=== PATIENT | female | born 1950 | race African-American/Black ===

== ENCOUNTER 2024-06-12 07:43 | Emergency (ER) | payer OTHER ==
[2024-06-12] MEDS ORDERED: dexAMETHasone 10 MG/ML VIAL ONE (08:47)
[2024-06-12] MEDS ORDERED: FENTANYL CITR 100 MCG/2 ML ONE (08:49)
--- NOTE | 2024-06-12 08:52 | RAD REPORT ---
EXAMINATION: US LEFT LOWER EXTREMITY VENOUS DOPPLER CLINICAL INDICATION: PAIN TECHNIQUE: Complete bilateral duplex sonography of the LEFT lower extremity veins was performed. The examination included compression for vein patency, color Doppler imaging and flow augmentation in response to distal compression of the distal external iliac, common femoral, femoral, popliteal, tibi al, and great and small saphenous veins. COMPARISON: No prior exam. FINDINGS: Duplex sonography testing of the veins of the LEFT lower extremity was performed. Color flow imaging shows all veins to be compressible with [id number] color filling. Pulsatile and phasic flow is present within all lower extremity deep and superficial veins examined. IMPRESSION: There is no deep vein or superficial vein thrombosis.
--- NOTE | 2024-06-12 09:13 | RAD REPORT ---
EXAMINATION: XR LEFT HIP CLINICAL INDICATION: . PAIN TECHNIQUE: Multiple views of the left hip were obtained. COMPARISON: No prior exam. FINDINGS: No acute fracture or dislocation. Fjsq-tw-[id number] left hip osteoarthritis. No radiographi c evidence of AVN. IMPRESSION: Bwny-zs-xlquavfb left hip osteoarthritis noted.
--- NOTE | 2024-06-12 09:14 | RAD REPORT ---
EXAMINATION: XR PELVIS CLINICAL INDICATION: PAIN TECHNIQUE: AP Pelvis examination was obtained. COMPARISON: No prior exam. FINDINGS: No evidence of fracture or dislocation. Normal alignment. No radiographic evidence of AVN seen. Euss-nw-slfumljy bilateral hip osteoarthritis. IMPRESSION: No acute finding visualized. Ajjm-ic-vcfvbvux bilateral hip osteoarthritis.
[2024-06-12 09:35] LABS: Sqamous Epithelial <5 /HPF (None Seen); Urine Bacteria None Seen /HPF (<20); Urine Bilirubin NEGATIVE (Negative); Urine Blood Negative (Negative); Urine Clarity Turbid (Clear); Urine Color Light-Yellow (Yellow); Urine Culture Reflex Order NOT NEEDED; Urine Glucose NEGATIVE (Negative); Urine Ketones NEGATIVE (Negative); Urine Micro Reflex YN NO BILL MICROSCOPIC; Urine Mucus Slight /HPF (None Seen); Urine Nitrite NEGATIVE (Negative); Urine Protein NEGATIVE (Negative); Urine RBC None Seen /HPF (None Seen); Urine Urobilinogen Normal (Normal); Urine WBC <5 /HPF (<5); Urine Yeast (Budding) Trace /HPF (None Seen)
--- NOTE | 2024-06-12 10:51 | RAD REPORT ---
EXAMINATION: CT ABDOMEN AND PELVIS WITHOUT CONTRAST CLINICAL INDICATION: left hip pain TECHNIQUE: CT abdomen and pelvis was performed, without IV contrast, as per department protocol. Axia l, sagittal and coronal reconstructions were obtained. One or more of the following dose reduction techniques were used: Automated exposure control, adjustment of the mA and kV according to the patien t size, and iterative reconstruction. Unless otherwise specified, incidental findings do not require dedicated imaging follow-up. COMPARISON: No prior exam. FINDINGS: The lack of intravenous contrast limits the sensitivity of this exam for evaluation of solid visceral organs, vascular structures, and retroperitoneum. LOWER CHEST: The visualized lung bases are clear. LIVER:Normal in size and contour. No focal lesion. Cholecystectomy clips. SPLEEN: Normal size. No focal lesion. PANCREAS: No mass, ductal dilation, or pepe-pancreatic fluid. ADRENALS: Normal; no mass. KIDNEYS AND URETERS: Normal size and contour. No hydronephrosis. URINARY BLADDER: Normal contour. GASTROINTESTINAL TRACT: No evidence of bowel obstruction, significant free fluid, free air or abscess . Moderate rectosigmoid stool. APPENDIX: Normal appendix. LYMPH NODES: No lymphadenopathy. MUSCULOSKELETAL: Mild to moderate lower lumbar degenerative changes. ADDITIONAL FINDINGS: None. IMPRESSION: No acute or concerning abnormalities in the abdomen or pelvis, with evaluation limited by lack of IV contrast. Moderate lower lumbar degenerative changes are seen.
--- NOTE | 2024-06-12 11:15 | ER ---
Nurse's Notes [facility] Name: Dominga Teran Age: 73 yrs Sex: Female : 1950 Arrival Date: 06/12/2024 Time: 07:43 Bed 14 Private MD: Diagnosis: Pain in left hip Presentation: 06/12 07:53 Chief complaint: Patient states: left hip pain since Wednesday morning, no injury. iw Coronavirus screen: At this time, the client does not indicate any symptoms associated with coronavirus-19. Ebola Screen: No symptoms or risks identified at this time. Initial Sepsis Screen: Does the patient meet any 2 criteria? No. Patient's initial sepsis screen is negative. Does the patient have a suspected source of infection? No. Patient's initial sepsis screen is negative. Risk Assessment: Do you want to hurt yourself or someone else? Patient reports no desire to harm self or others. Onset of symptoms was June 10, 2024. 07:53 Method Of Arrival: Wheelchair iw 07:53 Acuity: ESTEFANI 3 iw Historical: - Allergies: 07:54 No Known Allergies; iw - PMHx: 07:54 Arthritis; Hypertensive disorder; Depressive disorder; Panic attack; Migraine; iw - PSHx: 07:54 hysterectomy; Cholecystectomy; jarett knee; iw - Immunization history:: Adult Immunizations up to date. - Infectious Disease History:: Denies. - Social history:: Smoking status: Patient denies any tobacco usage or history of. Screenin:35 [facility] ED Fall Risk Assessment (Adult) History of falling in the last 3 months, db including since admission No falls in past 3 months (0 pts) Confusion or Disorientation No (0 pts) Intoxicated or Sedated No (0 pts) Impaired Gait No (0 pts) Mobility Assist Device Used No (0 pt) Altered Elimination No (0 pt) Score/Fall Risk Level 0 - 2 = Low Risk Oriented to surroundings, Maintained a safe environment. Abuse screen: Denies threats or abuse. Denies injuries from another. Nutritional screening: No deficits noted. Tuberculosis screening: No symptoms or risk factors identified. Assessment: 08:35 Reassessment: Patient appears in no apparent distress at this time. Patient and/or db family updated on plan of care and expected duration. Pain level reassessed. Patient is alert, oriented x 3, equal unlabored respirations, skin warm/dry/pink. LEFT HIP PAIN. General: Appears in no apparent distress. comfortable, Behavior is calm, cooperative. Pain: Complains of pain in left leg. Neuro: Level of Consciousness is awake, alert, obeys commands, Oriented to person, place, time, situation. Musculoskeletal: Circulation, motion, and sensation intact. Capillary refill < 3 seconds, Range of motion: limited in left hip. 09:16 General: Appears in no apparent distress. Behavior is calm, cooperative. Pain: ph Complains of pain in left hip Pain radiates to left leg. Neuro: Level of Consciousness is awake, alert, obeys commands, Oriented to person, place, time, situation. Derm: Skin is pink, warm \T\ dry. Musculoskeletal: Circulation, motion, and sensation intact. Range of motion: intact in all extremities. 10:00 Reassessment: Patient appears in no apparent distress at this time. Patient and/or ph family updated on plan of care and expected duration. Pain level reassessed. Patient is alert, oriented x 3, equal unlabored respirations, skin warm/dry/pink. Vital Signs: 07:53 BP 138 / 90; Pulse 68; Resp 16; Temp 98.1; Pulse Ox 98% on R/A; Weight 81.65 kg; Height iw 5 ft. 2 in. ; Pain 10/10; 10:00 BP 127 / 87; Pulse 67; Resp 18; Pulse Ox 98% on R/A; ph 11:00 BP 129 / 86; Pulse 72; Resp 19; Temp 98; Pulse Ox 99% on R/A; ph 07:53 Body Mass Index 32.92 (81.65 kg, 157.48 cm) iw 07:53 Pain Scale: Adult iw ED Course: 07:48 Patient arrived in ED. mr 07:54 Triage completed. iw 07:55 Arm band placed on. iw 07:56 Thao Interiano, MOLLY is Primary Nurse. db 08:06 Shad Toledo PA is PHCP. cp 08:06 Sarmad Flores DO is Attending Physician. cp 08:40 Patient taken to ultrasound. via stretcher. db 08:42 US Extremity Venous Unilateral Ltd In Process Unspecified. EDMS 08:51 Ultrasound completed. Patient tolerated well. Note: after us, pt taken to xray. lc6 09:08 XRAY Pelvis In Process Unspecified. EDMS 09:08 XRAY Hip LEFT 2 view In Process Unspecified. EDMS 09:11 Chantel Franco, RN is Primary Nurse. ph 09:18 Report given to MOLLY EPPS. db 09:46 Patient has correct armband on for positive identification. ph 09:46 Inserted saline lock: 24 gauge in left hand, using aseptic technique. Flushed with 10 ph mL NS. Missed attempt(s): 24 gauge in right wrist. Bleeding controlled, band aid applied, catheter tip intact. 10:24 CT Abd/Pelvis - Without Contrast In Process Unspecified. EDMS 11:51 Assist provider with bone marrow aspiration. IV discontinued, intact, bleeding ph controlled, No redness/swelling at site. Pressure dressing applied. Administered Medications: 09:45 Drug: Dexamethasone IVP 10 mg IVP once; (not to exceed 40 mg) Route: IVP; Site: left ph hand; 10:00 Follow up: Response: No adverse reaction ph 09:46 Drug: fentaNYL (PF) IVP 25 mcg IVP once Route: IVP; Site: left hand; ph 10:15 Follow up: Response: No adverse reaction ph 11:51 Drug: Ketorolac IVP 15 mg IVP once Route: IVP; Site: left hand; ph 12:00 Follow up: Response: No adverse reaction ph Medication: 11:51 VIS not applicable for this client. ph Outcome: 11:14 Discharge ordered by MD. cp 11:51 Discharged to home ambulatory, ph 11:51 Condition: good 11:51 Discharge instructions given to patient, Instructed on discharge instructions, follow up and referral plans. medication usage, Demonstrated understanding of instructions, follow-up care, medications, Prescriptions given X 2, 11:52 Patient left the ED. ph Signatures: Dispatcher [employer] EDLA Addie Viera, Reg Reg mr Alyssa Pleitez RN RN Chantel Franco, MOLLY RN ph Shad Toledo PA PA cp Thao Interiano RN RN Nickie Fernandez lc6
--- NOTE | 2024-06-12 11:15 | EDPHYS ---
Physician Documentation [facility] Name: Dominga Teran Age: 73 yrs Sex: Female : 1950 Arrival Date: 06/12/2024 Time: 07:43 Bed 14 Private MD: ED Physician Sarmad Flores HPI: 06/12 08:19 This 73 yrs old Black Female presents to ER via Wheelchair with complaints of Hip Pain. cp 08:19 The patient or guardian reports pain. sustained from unknown reason, There is no cp obvious deformity, The patient is able to ambulate with assistance. The patient is able to bear partial body weight. The patient's discomfort radiates to the left leg. The complaints affect the left hip. Onset: The symptoms/episode began/occurred gradually, and became worse 2 day(s) ago. Modifying factors: the symptoms are aggravated by any movement, weight bearing. Associated signs and symptoms: Pertinent negatives: abdominal pain, chest pain, dysuria, fever, incontinence, weakness. Historical: - Allergies: 07:54 No Known Allergies; iw - PMHx: 07:54 Arthritis; Hypertensive disorder; Depressive disorder; Panic attack; Migraine; iw - PSHx: 07:54 hysterectomy; Cholecystectomy; jarett knee; iw - Immunization history:: Adult Immunizations up to date. - Infectious Disease History:: Denies. - Social history:: Smoking status: Patient denies any tobacco usage or history of. ROS: 08:20 MS/extremity: Positive for pain, of the left hip and left leg, Negative for injury or cp acute deformity, decreased range of motion, paresthesias, Exam: 08:25 Constitutional: The patient appears in no acute distress, alert, awake, cp non-diaphoretic, non-toxic, well developed, well nourished, uncomfortable, overweight 08:25 Head/Face: Normocephalic, atraumatic. cp 08:25 Eyes: Periorbital structures: appear normal, Conjunctiva: normal, no exudate, no injection, Sclera: no appreciated abnormality, Lids and lashes: appear normal, bilaterally, 08:25 ENT: External ear(s): are unremarkable, Nose: is normal, Mouth: Lips: moist, Posterior pharynx: Airway: no evidence of obstruction, patent, 08:25 Chest/axilla: Inspection: normal, 08:25 Cardiovascular: Rate: normal, Rhythm: regular, Edema: is not appreciated, JVD: is not appreciated, 08:25 Respiratory: the patient does not display signs of respiratory distress, Respirations: normal, no use of accessory muscles, no retractions, labored breathing, is not present, Breath sounds: are clear throughout, no decreased breath sounds, no stridor, no wheezing, 08:25 Abdomen/GI: Inspection: abdomen appears normal, Palpation: abdomen is soft and non-tender, in all quadrants, 08:25 Back: pain, is absent, ROM is normal, 08:25 Musculoskeletal/extremity: Extremities: noted in the left hip: tenderness and pain lateral left hip, pain with passive ROM, no ROM restriction, no deformity, 08:25 Skin: cellulitis, is not appreciated, no rash present. Vital Signs: 07:53 BP 138 / 90; Pulse 68; Resp 16; Temp 98.1; Pulse Ox 98% on R/A; Weight 81.65 kg; Height iw 5 ft. 2 in. ; Pain 10/10; 10:00 BP 127 / 87; Pulse 67; Resp 18; Pulse Ox 98% on R/A; ph 11:00 BP 129 / 86; Pulse 72; Resp 19; Temp 98; Pulse Ox 99% on R/A; ph 07:53 Body Mass Index 32.92 (81.65 kg, 157.48 cm) iw 07:53 Pain Scale: Adult iw MDM: 08:06 Medical Screening Exam initiated cp 09:00 Differential diagnosis: hip fracture, intertrochanteric fracture, femoral neck cp fracture, femoral shaft fracture, bursitis, arthritis. 11:13 Data reviewed: vital signs, nurses notes, radiologic studies, CT scan, plain films, and cp as a result, I will discharge patient. 11:13 I considered the following discharge prescriptions or medication management in the cp emergency department Medications were administered in the Emergency Department. See MAR. Counseling: I had a detailed discussion with the patient and/or guardian regarding the historical points, exam findings, and any diagnostic results supporting the discharge/admit diagnosis, radiology results, the need for outpatient follow up, a family practitioner, a orthopedic surgeon, to return to the emergency department if symptoms worsen or persist or if there are any questions or concerns that arise at home. Response to treatment: the patient's symptoms have mildly improved after treatment, and as a result, I will discharge patient. 06/12 08:18 Order name: Urinalysis W/Microscopic; Complete Time: 09:38 cp 06/12 09:38 Interpretation: Normal except: [facility] Turbid; BYST Trace. cp 06/12 08:18 Order name: XRAY Pelvis; Complete Time: 09:38 cp 06/12 09:39 Interpretation: Report reviewed. cp 06/12 08:18 Order name: XRAY Hip LEFT 2 view; Complete Time: 09:38 cp 06/12 09:39 Interpretation: Report reviewed. cp 06/12 08:18 Order name: US Extremity Venous Unilateral Ltd; Complete Time: 09:38 cp 06/12 09:39 Interpretation: Report reviewed. cp 06/12 10:07 Order name: CT Abd/Pelvis - Without Contrast; Complete Time: 11:07 cp 06/12 11:08 Interpretation: Report reviewed. cp 06/12 08:18 Order name: IV; Complete Time: 09:46 cp 06/12 09:40 Order name: Misc. Order: ambulate patient; Complete Time: 11:07 cp Administered Medications: 09:45 Drug: Dexamethasone IVP 10 mg IVP once; (not to exceed 40 mg) Route: IVP; Site: left ph hand; 10:00 Follow up: Response: No adverse reaction ph 09:46 Drug: fentaNYL (PF) IVP 25 mcg IVP once Route: IVP; Site: left hand; ph 10:15 Follow up: Response: No adverse reaction ph 11:51 Drug: Ketorolac IVP 15 mg IVP once Route: IVP; Site: left hand; ph 12:00 Follow up: Response: No adverse reaction ph Disposition: 17:53 I was immediately available on-site in the Emergency Department for consultation in the ms3 care of the patient. 06/13 10:07 Chart complete. cp Disposition Summary: 06/12/24 11:14 Discharge Ordered Notes: Location: Home cp Problem: new cp Symptoms: have improved cp Condition: Stable cp Diagnosis - Pain in left hip cp Followup: cp - With: Private Physician - When: 2 - 3 days - Reason: Recheck today's complaints Discharge Instructions: - Discharge Summary Sheet cp - Arthritis cp - Hip Pain cp Forms: - Medication Reconciliation Form cp - Antibiotic Education cp - Prescription Opioid Use cp - Patient Portal Instructions cp - Leadership Thank You Letter cp Prescriptions: - diclofenac sodium 3 % Topical gel - apply 0.5 gram TOPICAL route 2 times per day for 21 days; 60 gram tube; cp Refills: 0, Product Selection Permitted - Mobic 7.5 mg Oral Tablet - take 1 tablet ORAL route once daily take with food; 20 tablet; Refills: 0, cp Product Selection Permitted Signatures: Dispatcher [employer] Alyssa Nolasco RN RN iw Chantel Franco RN RN ph [place], Shad, NORY PA Sarmad Millan DO DO ms3 Corrections: (The following items were deleted from the chart) 06/12 08:19 08:19 Hip Left 2 View+RAD.RAD.BRZ ordered. EDMS EDMS 08:19 08:19 Extremity Venous Uni Ltd+US.RAD.BRZ ordered. EDMS EDMS 08:19 08:19 CBC+H.LAB.BRZ ordered. EDMS EDMS 08:19 08:19 COMPREHENSIVE METABOLIC PANEL+C.LAB.BRZ ordered. EDMS EDMS 08:19 08:19 Urinalysis W/Microscopic+U.LAB.BRZ ordered. EDMS EDMS
[2024-06-12] MEDS ORDERED: KETOROLAC 30 MG/ML INJ ONE (11:28)
[2024-06-12 11:59] VITALS: BP 138/90; TEMP 98.1; O2SAT 98
== END 2024-06-12 11:52 | disposition home or self-care (01) ==
LOC: ER 07:43
DX: M25.552 Pain in left hip (principal)
CPT/HCPCS: 81001; 74176; 72170; 73502; 93971; J3010; J1100; 96374; 96375; 99285

== ENCOUNTER 2024-11-03 08:04 | Day surgery (SDC) | payer OTHER ==
[2024-11-01 10:50] LABS: Absolute Eosinophils 0.1 K/uL (0-0.5); Absolute Lymphocytes (CBC) 1.8 K/uL (0.7-4.9); Absolute Monocytes 0.3 K/uL (0.1-1.3); Absolute Neutrophil 3.6 K/uL (1.8-8.0); Basophils % 0.7 % (0-1.3); Eosinophils % 1.5 % (0-4.4); Hematocrit 32.2 % (36.0-45.0); Hemoglobin 10.9 g/dL (12.0-15.0); Lymphocytes % 31.2 % (15.3-44.8); MCH 31.5 pg (27.0-35.0); MCHC 33.9 g/dL (32.0-36.0); MCV 92.9 fL (80-100); MPV 7.5 fL (7.6-11.3); Monocytes % 4.3 % (3.3-12.3); Neutrophils % 62.3 % (41.7-73.7); Platelets 237 thou/uL (152-406); RBC Red Blood Cell Count 3.46 M/uL (3.86-4.86); Red Cell Distribution Width 12.5 % (12.1-15.2)
[2024-11-01 11:09] LABS: Anion Gap 8.6 mEq/L (5.0-15.0); Potassium 3.6 mEq/L (3.5-5.1)
--- NOTE | 2024-11-01 12:25 | EKG ---
Test Date: 2024-11-01 Test Time: 09:50:34 Mgmt Specialist: EDWARD MEASUREMENT RESULTS: Intervals: Rate: 66 NE: 134 QRSD: 80 QT: 536 QTc: 561 [place]: P: 69 NE: 134 QRS: -25 T: 47 INTERPRETIVE STATEMENTS: Normal sinus rhythm Nonspecific T wave abnormality Prolonged QT Abnormal ECG No previous ECG available for comparison Electronically Signed On 11-01-24 12:24:36 CDT by Berry Kramer
[2024-11-03] MEDS ORDERED: LIDOCAINE 1% MPF 5 ML VIAL ONE (08:27)
[2024-11-03] MEDS ORDERED: propofoL 200 MG/20 ML VIAL IV ONE ×2 (08:27→10:49)
[2024-11-03] MEDS: Ringers Lactate 1,000 ML IV ONE ×2 (08:38→10:30)
[2024-11-03] MEDS ORDERED: EPHEDRINE SULF 50 MG/ML VIAL ONE (10:49)
[2024-11-03 11:48] VITALS: O2SAT 96
[2024-11-03 12:41] VITALS: BP 131/74; TEMP 98.2
== END 2024-11-03 11:30 | disposition home or self-care (01) ==
LOC: OR 08:04
PROVIDERS: ATTEND Surgery
PROC: 0DB98ZX Excision of Duodenum, Via Natural or Artificial Opening Endoscopic, Diagnostic (ICD-10-PCS; 2024-11-03)
PROC: 0DB68ZX Excision of Stomach, Via Natural or Artificial Opening Endoscopic, Diagnostic (ICD-10-PCS; 2024-11-03)
PROC: 0DB48ZX Excision of Esophagogastric Junction, Via Natural or Artificial Opening Endoscopic, Diagnostic (ICD-10-PCS; 2024-11-03)
PROC: 0DBH8ZX Excision of Cecum, Via Natural or Artificial Opening Endoscopic, Diagnostic (ICD-10-PCS; principal; 2024-11-03 10:00)
PROC: 0DBC8ZX Excision of Ileocecal Valve, Via Natural or Artificial Opening Endoscopic, Diagnostic (ICD-10-PCS; 2024-11-03 10:00)
DX: Z12.11 Encounter for screening for malignant neoplasm of colon (principal); K22.2 Esophageal obstruction; K64.8 Other hemorrhoids; K57.30 Diverticulosis of large intestine without perforation or abscess without bleeding; D12.0 Benign neoplasm of cecum; K22.5 Diverticulum of esophagus, acquired; K29.60 Other gastritis without bleeding; K29.51 Unspecified chronic gastritis with bleeding
CPT/HCPCS: 93005; 85025; 80048; 36415; 88312; 88305; 45385; 43239; J2704 ×2; J2003; J7120 ×2

== ENCOUNTER 2025-01-08 12:12 | Emergency (ER) | payer OTHER ==
--- NOTE | 2025-01-08 13:25 | RAD REPORT ---
EXAMINATION: CT HEAD WITHOUT CONTRAST CT CERVICAL SPINE WITHOUT CONTRAST CLINICAL INDICATION: Headache. Left arm radiculopathy. TECHNIQUE: Axial CT images from the skull base to the vertex without intravenous contrast. Axial CT i mages through the cervical spine were obtained without intravenous contrast. Sagittal and coronal reformatted images were created from the data set. Coronal and sagittal reformatted images were creat ed from the data set. One or more of the following dose reduction techniques were used: Automated exposure control, adjustment of the mA and/or kV according to patient size, and/or iterative reconstr uction. Unless otherwise specified, incidental findings do not require dedicated imaging follow-up. [id number]. Comparison: none FINDINGS: An intracranial bleed is not seen. Ventricles are normal in caliber. No significant hypodensity within the brain No extra-axial fluid collection. No fluid within the sinuses/mastoids No fracture or dislocation is seen involving the cervical spine. No high-grade central/foraminal stenosis. IMPRESSION: No acute intracranial abnormality noted A cervical fracture is not seen. No significant cervical spine abnormality noted. If the patient continues to have symptoms to suggest acute TEMPERER/spinal pathology then MRI would be rec ommended
--- NOTE | 2025-01-08 13:27 | RAD REPORT ---
Exam:Shoulder Left 2+ Views HISTORY: Left shoulder pain FINDINGS: No fracture or dislocation seen Mild to moderate osteoarthritis AC joint consisting of osteophytes and joint space narrowing. Inferior osteophytes may result in impingement syndrome. Mild osteoarthritis glenohumeral joint. Bones appear osteoporotic.
[2025-01-08] MEDS ORDERED: METOCLOPRAMIDE 10 MG/2mL INJ ONE (14:12)
[2025-01-08] MEDS ORDERED: DIPHENHYDRAMINE 50 MG/ML VIAL ONE (14:12)
[2025-01-08 14:36] LABS: PT Prothrombin Time 10.5 SECONDS (10-13.0); Protime INR 0.92
[2025-01-08 14:37] LABS: Absolute Eosinophils 0.1 K/uL (0-0.5); Absolute Monocytes 0.3 K/uL (0.1-1.3); Absolute Neutrophil 3.1 K/uL (1.8-8.0); Basophils % 0.5 % (0-1.3); Hematocrit 33.1 % (36.0-45.0); Lymphocytes % 35.6 % (15.3-44.8); MCH 31.4 pg (27.0-35.0); MCHC 33.3 g/dL (32.0-36.0); MCV 94.3 fL (80-100); MPV 7.2 fL (7.6-11.3); Monocytes % 5.2 % (3.3-12.3); Neutrophils % 56.7 % (41.7-73.7); Nucleated Red Blood Cells % 0.1 % (0-0); Platelets 231 thou/uL (152-406); RBC Red Blood Cell Count 3.52 M/uL (3.86-4.86); Red Cell Distribution Width 13.1 % (12.1-15.2)
[2025-01-08 14:46] LABS: Albumin 3.4 g/dL (3.4-5.0); Albumin/Globulin Ratio 0.9 (1.1-1.8); Bilirubin Total 0.3 mg/dL (0.2-1.0); Globulin 3.9 g/dL (2.3-3.5); Protein, Total 7.3 g/dL (6.4-8.2)
--- NOTE | 2025-01-08 15:19 | EDPHYS ---
Physician Documentation [facility] Name: Dominga Teran Age: 74 yrs Sex: Female : 1950 Arrival Date: 01/08/2025 Time: 12:12 Bed 9 Private MD: ED Physician Sarmad Flores HPI: 01/08 13:24 This 74 yrs old Black Female presents to ER via Wheelchair with complaints of Headache, ms3 Nausea, Arm Pain, Numbness Of Arm. 13:24 74-year-old female with past medical history of arthritis, depression, hypertension, ms3 migraines, panic attack presents to the emergency department for left arm pain and tingling that began yesterday. Patient states her discomfort is a 9/10. She states movement makes the pain worse. She denies alleviating factors. Patient endorses nausea and headache. She denies vomiting, diarrhea, fevers, chills.. Historical: - Allergies: 12:30 No Known Allergies; jl7 - PMHx: 12:30 Arthritis; depressive disorder; Hypertensive disorder; Migraine; panic attack; jl7 - PSHx: 12:30 VARUN knee; Cholecystectomy; hysterectomy; jl7 - Immunization history:: Adult Immunizations up to date. - Infectious Disease History:: Denies. - Social history:: Smoking status: Patient denies any tobacco usage or history of. ROS: 13:24 Constitutional: Negative for fever, and chills. Cardiovascular: Negative for chest ms3 pain, and palpitations. Respiratory: Negative for shortness of breath, cough, wheezing, and pleuritic chest pain, Abdomen/GI: Negative for abdominal pain, nausea, vomiting, diarrhea, and constipation, Skin: Negative for injury, rash, and discoloration, 13:24 MS/extremity: Positive for pain, tingling, of the Left arm, Exam: 13:24 Constitutional: This is a well developed, well nourished patient who is awake, alert, ms3 and in no acute distress. Cardiovascular: Regular rate and rhythm with a normal S1 and S2. No gallops, murmurs, or rubs. Normal PMI, no JVD. No pulse deficits. Respiratory: Lungs have equal breath sounds bilaterally, clear to auscultation and percussion. No rales, rhonchi or wheezes noted. No increased work of breathing, no retractions or nasal flaring. Abdomen/GI: Soft, non-tender, with normal bowel sounds. No distension or tympany. No guarding or rebound. No evidence of tenderness throughout. Skin: Warm, dry with normal turgor. Normal color with no rashes, no lesions, and no evidence of cellulitis. 13:24 Musculoskeletal/extremity: Extremities: noted in the Left shoulder: pain, tenderness, 15:48 ECG was reviewed by the Attending Physician. ms3 Vital Signs: 12:25 BP 140 / 88; Pulse 68; Resp 17; Temp 97; Pulse Ox 100% ; Weight 78.93 kg; Height 5 ft. jl7 2 in. ; Pain 9/10; 15:27 BP 132 / 81; Pulse 65; Resp 16; Temp 97.9; Pulse Ox 100% on R/A; dd2 12:25 Body Mass Index 31.82 (78.93 kg, 157.48 cm) jl7 12:25 Pain Scale: Adult jl7 [place] Coma Score: 14:19 Eye Response: spontaneous(4). Motor Response: obeys commands(6). Verbal Response: dd2 oriented(5). Total: 15. MDM: 12:27 Medical Screening Exam initiated ms3 13:24 Differential diagnosis: intracerebral hemorrhage, migraine, Degenerative disc disease ms3 versus osteoarthritis of left shoulder versus peripheral neuropathy. 15:20 Data reviewed: vital signs, nurses notes, lab test result(s), radiologic studies, and ms3 as a result, I will discharge patient. I considered the following discharge prescriptions or medication management in the emergency department Medications were administered in the Emergency Department. See MAR. Independent interpretation of the following test(s) in the Emergency Department EKG: See my EKG interpretation above. Counseling: I had a detailed discussion with the patient and/or guardian regarding the historical points, exam findings, and any diagnostic results supporting the discharge/admit diagnosis, lab results, radiology results, the need for outpatient follow up, to return to the emergency department if symptoms worsen or persist or if there are any questions or concerns that arise at home. Special discussion: I discussed with the patient/guardian in detail that at this point there is no indication for admission to the hospital. It is understood, however, that if the symptoms persist or worsen the patient needs to return immediately for re-evaluation. ED course: On reevaluation patient's headache improved, patient is alert, no apparent distress, nontoxic-appearing, speaking full sentences. Patient to follow-up with Dr. eMlvin in 2 to 3 days, Dr. Navarro in 2 to 3 days. All questions were answered. Return precautions discussed include worsening symptoms, or any other concerns. 01/08 12:28 Order name: CBC with Diff; Complete Time: 15:15 ms3 01/08 12:28 Order name: CMP; Complete Time: 14:48 ms3 01/08 12:28 Order name: PT-INR; Complete Time: 14:48 ms3 01/08 12:28 Order name: Shoulder Left (2 View) XRAY; Complete Time: 13:31 ms3 01/08 12:28 Order name: CT Head C Spine; Complete Time: 13:27 ms3 01/08 12:28 Order name: EKG - Nurse/Tech; Complete Time: 15:10 ms3 01/08 12:28 Order name: IV; Complete Time: 14:14 ms3 EC:48 Rate is 61 beats/min. Rhythm is regular. Left axis deviation noted. WI interval is ms3 normal. QRS interval is normal. Clinical impression: NSR w/ Non-specific ST/T Changes. Interpreted by me. Reviewed by me. Administered Medications: 14:16 Drug: metoCLOPramide IVP 10 mg IVP once; over 1 to 2 minutes Route: IVP; Site: right dd2 wrist; 14:32 Follow up: Response: No adverse reaction dd2 14:16 Drug: diphenhydrAMINE IVP 12.5 mg IVP once Route: IVP; Site: right wrist; dd2 14:32 Follow up: Response: No adverse reaction dd2 Disposition Summary: 01/08/25 15:19 Discharge Ordered Notes: Location: Home ms3 Condition: Stable ms3 Diagnosis - Headache ms3 - Pain in left shoulder ms3 Followup: ms3 - With: Sarkis Melvin DO - When: 2 - 3 days - Reason: Recheck today's complaints Followup: ms3 - With: Kishore Navarro MD - When: 2 - 3 days - Reason: Recheck today's complaints Discharge Instructions: - Discharge Summary Sheet ms3 - General Headache Without Cause ms3 - Musculoskeletal Pain ms3 - Shoulder Pain, [id number] ms3 - General Headache Without Cause, [id number] ms3 Forms: - Medication Reconciliation Form ms3 - Antibiotic Education ms3 - Prescription Opioid Use ms3 - Patient Portal Instructions ms3 - Leadership Thank You Letter ms3 Signatures: Dispatcher [employer] EDMS Edie Mendieta, RN RN jl7 Sarmad Flores DO DO ms3 SADIE STEVEN RN RN dd2 Corrections: (The following items were deleted from the chart) 12: 12:28 CBC+H.LAB.BRZ ordered. EDMS EDMS 12: 12:28 COMPREHENSIVE METABOLIC PANEL+C.LAB.BRZ ordered. EDMS EDMS 12: 12:28 PROTIME (+INR)+COAG.LAB.BRZ ordered. EDMS EDMS 12: 12:28 Shoulder Left 2 View+RAD.RAD.BRZ ordered. EDMS EDMS 12:28 12:28 Head C Spine MPR Wo Con+CT.RAD.BRZ ordered. EDMS EDMS
--- NOTE | 2025-01-08 15:19 | ER ---
Nurse's Notes [facility] Name: Dominga Teran Age: 74 yrs Sex: Female : 1950 Arrival Date: 01/08/2025 Time: 12:12 Bed 9 Private MD: Diagnosis: Headache;Pain in left shoulder Presentation: 01/08 12:25 Chief complaint: Patient states: Left shoulder pain, aggravated by trying to hold jl7 something, radiates down left arm, nausea, headache x 1 day. Coronavirus screen: At this time, the client does not indicate any symptoms associated with coronavirus-19. Ebola Screen: No symptoms or risks identified at this time. Initial Sepsis Screen: Does the patient meet any 2 criteria? No. Patient's initial sepsis screen is negative. Does the patient have a suspected source of infection? No. Patient's initial sepsis screen is negative. Risk Assessment: Do you want to hurt yourself or someone else? Patient reports no desire to harm self or others. Onset of symptoms was January 07, 2025. 12:25 Method Of Arrival: Wheelchair jl7 12:25 Acuity: ESTEFANI 3 jl7 Triage Assessment: 15:29 Pain: Also complains of sleeplessness. dd2 15:29 Headache History: The patient has had previous headaches and this one is similar to dd2 previous episodes. 15:29 Pain: Pain began 1 day ago. dd2 Historical: - Allergies: 12:30 No Known Allergies; jl7 - PMHx: 12:30 Arthritis; depressive disorder; Hypertensive disorder; Migraine; panic attack; jl7 - PSHx: 12:30 VARUN knee; Cholecystectomy; hysterectomy; jl7 - Immunization history:: Adult Immunizations up to date. - Infectious Disease History:: Denies. - Social history:: Smoking status: Patient denies any tobacco usage or history of. Screenin:19 [facility] ED Fall Risk Assessment (Adult) History of falling in the last 3 months, dd2 including since admission No falls in past 3 months (0 pts) Confusion or Disorientation No (0 pts) Intoxicated or Sedated No (0 pts) Impaired Gait No (0 pts) Mobility Assist Device Used No (0 pt) Altered Elimination No (0 pt) Score/Fall Risk Level 0 - 2 = Low Risk Oriented to surroundings, Maintained a safe environment, Educated pt \T\ family on fall prevention, incl call for assistance when getting out of bed, Assessed \T\ reinforced patient's understanding of fall precautions, Hourly rounding (assess needs \T\ fall precautionary measures) done. Abuse screen: Denies threats or abuse. Denies injuries from another. Nutritional screening: No deficits noted. Tuberculosis screening: No symptoms or risk factors identified. Assessment: 14:19 General: Appears in no apparent distress. comfortable, Behavior is calm, cooperative, dd2 appropriate for age. Pain: Complains of pain in anterior aspect of left shoulder Pain currently is 4 out of 10 on a pain scale. Aggravated by weight bearing. Neuro: Level of Consciousness is awake, alert, obeys commands, Oriented to person, place, time, situation, Appropriate for age Strength And Conditioning Coach are equal bilaterally Moves all extremities. Speech is normal, Facial symmetry appears normal, Reports weakness in anterior aspect of left shoulder. Cardiovascular: No deficits noted. Respiratory: No deficits noted. GI: No deficits noted. No signs and/or symptoms were reported involving the gastrointestinal system. : No deficits noted. No signs and/or symptoms were reported regarding the genitourinary system. EENT: No deficits noted. No signs and/or symptoms were reported regarding the EENT system. Derm: No deficits noted. No signs and/or symptoms reported regarding the dermatologic system. Musculoskeletal: Circulation, motion, and sensation intact. Range of motion: intact in all extremities, Reports weakness in anterior aspect of left shoulder. Vital Signs: 12:25 BP 140 / 88; Pulse 68; Resp 17; Temp 97; Pulse Ox 100% ; Weight 78.93 kg; Height 5 ft. jl7 2 in. ; Pain 9/10; 15:27 BP 132 / 81; Pulse 65; Resp 16; Temp 97.9; Pulse Ox 100% on R/A; dd2 12:25 Body Mass Index 31.82 (78.93 kg, 157.48 cm) jl7 12:25 Pain Scale: Adult jl7 Samir Coma Score: 14:19 Eye Response: spontaneous(4). Motor Response: obeys commands(6). Verbal Response: dd2 oriented(5). Total: 15. ED Course: 12:15 Patient arrived in ED. al6 12:19 Sarmad Flores DO is Attending Physician. ms3 12:30 Triage completed. jl7 12:46 CT Head C Spine In Process Unspecified. EDMS 13:00 Shoulder Left (2 View) XRAY In Process Unspecified. EDMS 13:45 Missed attempt(s): 20 gauge Bleeding controlled, band aid applied, catheter tip intact. ty 13:52 Missed attempt(s): 22 gauge Bleeding controlled, band aid applied, catheter tip intact. ty 14:19 No provider procedures requiring assistance completed. Initial lab(s) drawn, by me, dd2 sent to lab. Inserted saline lock: 22 gauge in right wrist, using aseptic technique. Blood collected. Flushed with 10 mL NS. Patient maintains SpO2 saturation greater than 95% on room air. 14:19 Patient has correct armband on for positive identification. Bed in low position. Call dd2 light in reach. Side rails up X 1. Client placed on continuous cardiac and pulse oximetry monitoring. NIBP monitoring applied. Door closed. Noise minimized. Pillow given. Verbal reassurance given. 15:10 SADIE STEVEN RN is Primary Nurse. dd2 15:10 EKG done, by ED staff, reviewed by Sarmad Flores DO. dd2 15:18 Sarkis Melvin DO is Referral Physician. ms3 15:18 Kishore Navarro MD is Referral Physician. ms3 15:27 IV discontinued, intact, bleeding controlled, No redness/swelling at site. Pressure dd2 dressing applied. 15:27 Provided Education on: D/C EDUCATION. dd2 Administered Medications: 14:16 Drug: metoCLOPramide IVP 10 mg IVP once; over 1 to 2 minutes Route: IVP; Site: right dd2 wrist; 14:32 Follow up: Response: No adverse reaction dd2 14:16 Drug: diphenhydrAMINE IVP 12.5 mg IVP once Route: IVP; Site: right wrist; dd2 14:32 Follow up: Response: No adverse reaction dd2 Medication: 14:19 VIS not applicable for this client. dd2 Outcome: 15:19 Discharge ordered by . ms3 15:27 Discharged to home ambulatory, dd2 15:27 Condition: stable 15:27 Discharge instructions given to patient, Instructed on discharge instructions, follow up and referral plans. Demonstrated understanding of instructions, follow-up care, 15:29 Patient left the ED. dd2 Signatures: Dispatcher [employer] EDWY Edie Mendieta RN RN jl7 Sarmad Flores DO DO ms3 Conrado Antonio DIANA, MOLLY RN dd2 Deborah Jalloh al6
[2025-01-08 15:38] VITALS: O2SAT 100
[2025-01-08 15:40] VITALS: BP 132/81; TEMP 97.9
--- NOTE | 2025-01-09 12:19 | EKG ---
Test Date: 2025-01-08 Test Time: 14:47:38 Lens Molder: JULIAN MEASUREMENT RESULTS: Intervals: Rate: 61 IA: 140 QRSD: 80 QT: 474 QTc: 477 [place]: P: 55 IA: 140 QRS: -12 T: 39 INTERPRETIVE STATEMENTS: Normal sinus rhythm Inferior infarct, age undetermined Abnormal ECG Compared to ECG 11/01/2024 09:50:34 Myocardial infarct finding now present T-wave abnormality no longer present Prolonged QT interval no longer present Electronically Signed On 01-09-25 12:17:20 CDT by Berry Kramer
== END 2025-01-08 15:29 | disposition home or self-care (01) ==
LOC: ER 12:12
DX: R51.9 Headache, unspecified (principal); M25.512 Pain in left shoulder
CPT/HCPCS: 93005; 85025; 36415; 85610; 80053; 70450; 72125; 73030; 96375; 96374; 99284; J2765; J1200